=== PATIENT | male | born 1970 | race Caucasian/White ===

== ENCOUNTER 2017-11-27 12:10 | Observation (INO) | payer MEDICAID, MEDICARE ==
[2017-11-27] VITALS (7 sets, daily range): BP systolic 115–171; BP diastolic 60–84; PULSE 68–78; RESP 15–20; TEMP 97.3–97.6; O2SAT 94–96
[~2017-11-27] VITALS: Ht 195.6 cm; Wt 197.0 kg
[~2017-11-27 12:10] MED LIST: ALBU8I INH; ALLO300T2 PO; CHOL50006 PO; COLC1TAB7 PO; FURO1TAB93 PO; METO2.5T7 PO; MORP100T40 PO; MULT-65 PO; NEUR800T PO; OXYC5 PO; POTA-243 PO; SUMA25 PO; SYMB80AE INH
[2017-11-27] MEDS ORDERED: CHOL5000 PO (12:39)
[2017-11-27] MEDS ORDERED: SENO8.6T5 PO (12:39)
[2017-11-27] MEDS ORDERED: SYMB160A INH (12:39)
[2017-11-27] MEDS ORDERED: ALLO300T2 PO (12:39)
[2017-11-27] MEDS ORDERED: GABA600T PO (12:39)
[2017-11-27] MEDS ORDERED: COLA100C5 PO (12:39)
[2017-11-27] MEDS ORDERED: OXYC30TA PO (12:39)
[2017-11-27] MEDS ORDERED: PANT40TA3 PO (12:39)
[2017-11-27] MEDS ORDERED: MULTTAB67 PO (12:39)
[2017-11-27] MEDS ORDERED: VENTAER INH (12:39)
[2017-11-27] MEDS ORDERED: POTA1TAB4 PO (12:39)
[2017-11-27] MEDS ORDERED: MS C200T2 PO (12:39)
[2017-11-27] MEDS ORDERED: SODIUM CHLORIDE 0.9% FLUSH 10 ML FLUSH IV FLUSH PRN ×2 (12:45→15:00)
[2017-11-27] MEDS ORDERED: MORPHINE SULFATE 4 MG/ML INJ IV PUSH ONE (12:45)
[2017-11-27] MEDS ORDERED: FAMOTIDINE 20 MG/2 ML VIAL IV PUSH ONE (12:45)
[2017-11-27 12:56] LABS: AUTOMATED NEUTROPHIL # 7.2 TH/MM3 (1.8-7.7); BASOPHIL # 0.2 TH/MM3 (0-0.2); BASOPHIL % 2.4 % (0.0-2.0); EOSINOPHIL # 0.2 TH/MM3 (0-0.4); EOSINOPHIL % 2.3 % (0.0-4.0); HEMATOCRIT 44.4 % (39.0-51.0); HEMOGLOBIN 15.1 GM/DL (13.0-17.0); LYMPH % 12.1 % (9.0-44.0); LYMPHOCYTE # 1.1 TH/MM3 (1.0-4.8); MEAN CELL VOLUME 83.8 FL (80.0-100.0); MEAN CORPUSCULAR HEMOGLOBIN 28.6 PG (27.0-34.0); MEAN CORPUSCULAR HGB CONC 34.1 % (32.0-36.0); MEAN PLATELET VOLUME 9.7 FL (7.0-11.0); MONO % 8.3 % (0.0-8.0); MONOCYTE # 0.8 TH/MM3 (0-0.9); NEUT % 74.9 % (16.0-70.0); PLATELET COUNT 212 TH/MM3 (150-450); RED BLOOD COUNT 5.29 MIL/MM3 (4.50-5.90); RED CELL DISTRIBUTION WIDTH 13.9 % (11.6-17.2); WHITE BLOOD COUNT 9.5 TH/MM3 (4.0-11.0)
[2017-11-27 13:03] LABS: BILIRUBIN, URINE NEG (NEG); BLOOD, URINE NEG (NEG); GLUCOSE,URINE 1000 OR GREATER mg/dL (NEG); KETONE, URINE NEG (NEG); NITRITE,URINE NEG (NEG); URINE COLOR YELLOW (YELLW/STRAW); URINE LEUKOCYTE ESTERASE NEG (NEG)
[2017-11-27 13:10] LABS: RBC, URINE 0-3 /hpf (0-3); SQUAMOUS EPITHELIAL CELL URINE 0-5 /hpf (0-5)
[2017-11-27 13:27] LABS: ALBUMIN 3.2 GM/DL (3.4-5.0); ALKALINE PHOSPHATASE 125 U/L (45-117); ALT (GPT) 22 U/L (12-78); AST (GOT) 16 U/L (15-37); BICARBONATE 30.3 MEQ/L (21.0-32.0); BLOOD UREA NITROGEN 13 MG/DL (7-18); CALCIUM 8.8 MG/DL (8.5-10.1); CHLORIDE 79 MEQ/L (98-107); GLOMERULAR FILTRATION RATE 46 ML/MIN (>89); PROTHROMBIN TIME - PATIENT 10.4 SEC (9.8-11.6); TROPONIN I LESS THAN 0.02 NG/ML (0.02-0.05)
[2017-11-27 13:30] LABS: GLUCOSE,RANDOM 921 MG/DL (74-106); SODIUM (NA) 120 MEQ/L (136-145)
[2017-11-27] MEDS ORDERED: SODIUM CHLOR 0.9% 1000 ML INJ 1,000 ML IV ONE ×2 (13:45)
[2017-11-27] MEDS ORDERED: INSULIN HUMAN REGULAR 1,000 UNITS/10 ML VIAL IV PUSH ONE (13:45)
[2017-11-27] MEDS ORDERED: IOHEXOL 350 MG/ML 10 ML VIAL (for RAD DIAG) IVCONTRAST ONE (13:59)
--- NOTE | 2017-11-27 14:38 | RADRPT ---
EXAM DATE: 11/27/2017 1:59 PM EDT AGE/SEX: 47 years / Male INDICATIONS: Left abdominal pain. CLINICAL DATA: This is the patient's initial encounter. Patient reports that signs and symptoms have been present for 1 week and indicates a pain score of 5/10. MEDICAL/SURGICAL HISTORY: Gastroesophageal reflux disease. Renal calculi. Ulcers. Gastritis. Hypertension. Seizures. None. ORAL CONTRAST: No oral contrast ingested. RADIATION DOSE: 31.88 CTDI (mGy) ; Patient body habitus COMPARISON: No prior [facility] exams available for comparison. TECHNIQUE: Multiple contiguous axial images were obtained through the abdomen and pelvis following b olus infusion of 90 ml Omnipaque 350 (iohexol) nonionic water-soluble contrast as a single exam dos e. No oral contrast ingested. Using automated exposure control and adjustment of the mA and/or kV ac cording to patient size, the radiation dose was kept as low as reasonably achievable to obtain optima l diagnostic quality images. FINDINGS: Lower Lungs: The visualized lower lungs are clear. Liver: The liver has a homogeneous , but decreased density without space-occupying lesion. There is n o dilation of the biliary tree. Spleen: Homogeneous density without enlargement. Pancreas: Mild haziness around the head of the pancreas could represent a very early pancreatitis. N o focal mass lesion. Kidneys: Normal in size and shape. No evidence of mass or hydronephrosis. Adrenal Glands: Unremarkable. Aorta: The aorta and proximal iliac vessels are grossly unremarkable without aneurysmal dilation. Bowel/Mesentery: The bowel loops are grossly unremarkable. The cecum and sigmoid colon have a normal configuration. Abdominal Wall: Intact. Retroperitoneum: There are a few prominent lymph nodes along the iliac chains bilaterally. These kris sure upwards of 2.5 cm in diameter. These appear to be isolated to the iliac chain and may be reactiv e. Bladder: Contours are smooth. Reproductive Organs: No abnormal masses or calcifications seen. Inguinal: Small, 2.7 cm left inguinal hernia only contains fat. Bony Structures: Unremarkable. Post Contrast: No abnormal areas of enhancement seen. CONCLUSION: 1. There is some haziness in the fatty tissues adjacent to the pancreatic head. Findings could repre sent a very early, mild pancreatitis. 2. Mild, diffuse hepatic fatty infiltration. 3. Prominent lymph nodes along the iliac chains bilaterally. These appear to be isolated to this reg ion and may be reactive. 4. 2.7 cm left inguinal hernia only contains fat. Electronically signed by: Wes Pfeiffer MD 11/27/2017 2:37 PM EDT
[2017-11-27] MEDS ORDERED: POTASSIUM CHLORIDE 10 MEQ CONTROLLED RELEASE TAB PO ONE (14:45)
--- NOTE | 2017-11-27 14:52 | PD ---
HPI Chief Complaint: Chest Pain Time Seen by Provider: 12:24 Travel History International Travel<30 days: No Contact w/Intl Traveler<30days: No Traveled to known affect area: No History of Present Illness HPI Patient is a 47-year-old male who comes in complaining of abdominal pain and chest pain. He says that the pain in his belly started about 4 or 5 days ago and then moved up into his chest. He says the pain feels like a knot in the upper part of his stomach. He has had issues with the stomach before. He denies any cardiac problems. He has been on doxycycline for a urinary tract infection. Does report some diarrhea, but none today. He reports increased thirst and urination. He denies fever chills. Severity is mild to moderate. PFSH Past Medical History Anemia: Yes Asthma: Yes (BRONCHITIS) Anxiety: Yes Cancer: Yes (BASAL CELL ) Diabetes: Yes Patient Takes Glucophage: No Diminished Hearing: Yes Gastrointestinal Disorders: Yes (Hx gastritis) GERD: Yes Headaches: Yes Hypertension: Yes Kidney Stones: Yes Medical other: Yes (frequent UTI; Epidermolysis bullosa) Musculoskeletal: Yes (arthritis; osteomyelitis in back) Neurologic: Yes (Hx migraines) Psychiatric: No Respiratory: Yes (Bipap: sleep apneas) Integumentary: Yes (SKIN DISEASE-- EPIDERMALOSIS SIMPLEX) Migraines: Yes Seizures: Yes (PETITE MAL) Sleep Apnea: Yes Ulcer: Yes (HX OF STOMACH ULCER IN PAST) Influenza Vaccination: No Past Surgical History Genitourinary Surgery: Yes (Urethral dilatation multiple times) Oral Surgery: Yes (tonsillectomy) Tonsillectomy: Yes Other Surgery: Yes (HX OF SUPRA PUBIC CATH, CLEANED OUT SCAR TISSURE FROM URETHERAL TRACT) Family History Family Hypercholesterolemia: Yes Social History Alcohol Use: No Tobacco Use: No Substance Use: No Allergies-Medications (Allergen,Severity, Reaction): Coded Allergies: ceftriaxone (Unverified Allergy, Severe, 11/27/17) WBC GOES UP ciprofloxacin (Unverified Allergy, Severe, 11/27/17) penicillin G (Unverified Allergy, Severe, 11/27/17) UNKNOWN- TESTED POSITIVE ON ALLERGY TEST vancomycin (Unverified Allergy, Severe, 11/27/17) WBC GOES UP Reported Meds & Prescriptions Reported Meds & Active Scripts Active Reported Colace (Docusate Sodium) 100 Mg Capsule 200 Mg PO HS Senokot (Sennosides) 8.6 Mg Tab 8.6 Mg PO DAILY Allopurinol 300 Mg Tab 300 Mg PO DAILY Symbicort Inh (Budesonide/Formoterol Fumarate) 160-4.5 Mcg/Act Aero 1 Puff INH DAILY Ventolin Hfa 18 GM Inh (Albuterol Sulfate) 90 Mcg/Act Aer 2 Puff INH Q6H PRN Vitamin D3 (Cholecalciferol) 5,000 Unit Cap 5,000 Units PO DAILY Multiple Vitamin 1 Tab 1 Tab PO DAILY Ms Contin (Morphine Sulfate) 200 Mg Tab 100 Mg PO BID Oxycodone (Oxycodone HCl) 30 Mg Tab 30 Mg PO Q4HR PRN Gabapentin 600 Mg Tab 1,200 Mg PO BID K-Tab (Potassium Chloride) 20 Meq Tab 20 Meq PO BID Pantoprazole (Pantoprazole Sodium) 40 Mg Tab 40 Mg PO DAILY Review of Systems Except as stated in HPI: all other systems reviewed are Neg General / Constitutional: No: Fever, Chills HENT: No: Headaches, Lightheadedness Cardiovascular: Positive: Chest Pain or Discomfort Respiratory: No: Shortness of Breath Gastrointestinal: Positive: Diarrhea, Abdominal Pain Skin: No Rash, No Change in Pigmentation Endocrine: Positive: Polyuria, Polydipsia Physical Exam Narrative GENERAL: Awake and alert, no acute distress. SKIN: Focused skin assessment warm/dry. HEAD: Atraumatic. Normocephalic. EYES: Pupils equal and round. No scleral icterus. ENT: Mucous membranes pink and moist. NECK: Trachea midline. No JVD. CARDIOVASCULAR: Regular rate and rhythm. No murmur appreciated. RESPIRATORY: No accessory muscle use. Clear to auscultation. Breath sounds equal bilaterally. GASTROINTESTINAL: Abdomen soft, nondistended. Tender to palpation of the epigastric area, no rebound or guarding. MUSCULOSKELETAL: No obvious deformities. No clubbing. No cyanosis. No edema. NEUROLOGICAL: Awake and alert. No obvious cranial nerve deficits. Motor grossly within normal limits. Normal speech. PSYCHIATRIC: Appropriate mood and affect; insight and judgment normal. Data Data Last Documented VS Vital Signs Date Time Temp Pulse Resp B/P (MAP) Pulse Ox O2 Delivery O2 Flow Rate FiO2 11/27/17 14:00 72 20 149/84 (105) 95 Room Air 11/27/17 12:21 97.6 Orders Orders Complete Blood Count With Diff (11/27/17 12:42) Comprehensive Metabolic Panel (11/27/17 12:42) Lipase (11/27/17 12:42) Prothrombin Time / Inr (Pt) (11/27/17 12:42) Act Partial Throm Time (Ptt) (11/27/17 12:42) Urinalysis - C+S If Indicated (11/27/17 12:42) Ct Abd/Pel W Iv Contrast(Rout) (11/27/17 12:42) Iv Access Insert/Monitor (11/27/17 12:42) Ecg Monitoring (11/27/17 12:42) Oximetry (11/27/17 12:42) Morphine Inj (Morphine Inj) (11/27/17 12:45) Sodium Chloride 0.9% Flush (Ns Flush) (11/27/17 12:45) Famotidine Inj (Pepcid Inj) (11/27/17 12:45) Troponin I (11/27/17 12:42) Sodium Chlor 0.9% 1000 Ml Inj (Ns 1000 M (11/27/17 13:45) Sodium Chlor 0.9% 1000 Ml Inj (Ns 1000 M (11/27/17 13:45) Insulin Human Regular Inj (Novolin R Inj (11/27/17 13:45) Iohexol 350 Inj (Omnipaque 350 Inj) (11/27/17 13:59) Admit Order (Ed Use Only) (11/27/17 ) Potassium Chloride (Kcl) (11/27/17 14:45) Labs Laboratory Tests Test 11/27/17 12:48 11/27/17 13:00 White Blood Count 9.5 TH/MM3 Red Blood Count 5.29 MIL/MM3 Hemoglobin 15.1 GM/DL Hematocrit 44.4 % Mean Corpuscular Volume 83.8 FL Mean Corpuscular Hemoglobin 28.6 PG Mean Corpuscular Hemoglobin Concent 34.1 % Red Cell Distribution Width 13.9 % Platelet Count 212 TH/MM3 Mean Platelet Volume 9.7 FL Neutrophils (%) (Auto) 74.9 % Lymphocytes (%) (Auto) 12.1 % Monocytes (%) (Auto) 8.3 % Eosinophils (%) (Auto) 2.3 % Basophils (%) (Auto) 2.4 % Neutrophils # (Auto) 7.2 TH/MM3 Lymphocytes # (Auto) 1.1 TH/MM3 Monocytes # (Auto) 0.8 TH/MM3 Eosinophils # (Auto) 0.2 TH/MM3 Basophils # (Auto) 0.2 TH/MM3 CBC Comment DIFF FINAL Differential Comment Prothrombin Time 10.4 SEC Prothromb Time International Ratio 1.0 RATIO Activated Partial Thromboplast Time 26.1 SEC Blood Urea Nitrogen 13 MG/DL Creatinine 1.60 MG/DL Random Glucose 921 MG/DL Total Protein 8.0 GM/DL Albumin 3.2 GM/DL Calcium Level 8.8 MG/DL Alkaline Phosphatase 125 U/L Aspartate Amino Transf (AST/SGOT) 16 U/L Alanine Aminotransferase (ALT/SGPT) 22 U/L Total Bilirubin 1.0 MG/DL Sodium Level 120 MEQ/L Potassium Level 3.2 MEQ/L Chloride Level 79 MEQ/L Carbon Dioxide Level 30.3 MEQ/L Anion Gap 11 MEQ/L Estimat Glomerular Filtration Rate 46 ML/MIN Troponin I LESS THAN 0.02 NG/ML Lipase 453 U/L Urine Collection Type CLEAN CATCH Urine Color YELLOW Urine Turbidity CLEAR Urine pH 6.0 Urine Specific [place] LESS/EQUAL 1.005 Urine Protein NEG mg/dL Urine Glucose (UA) 1000 OR GREATER mg/dL Urine Ketones NEG mg/dL Urine Occult Blood NEG Urine Nitrite NEG Urine Bilirubin NEG Urine Urobilinogen 0.2 MG/DL Urine Leukocyte Esterase NEG Urine RBC 0-3 /hpf Urine Squamous Epithelial Cells 0-5 /hpf Microscopic Urinalysis Comment CULT NOT INDICATED Urine Collection Time 13:00 [facility] Medical Decision Making Medical Screen Exam Complete: Yes Emergency Medical Condition: Yes Medical Record Reviewed: Yes Interpretation(s) ECG shows normal sinus rhythm at a rate of 78, no ST elevation or depression, normal intervals Differential Diagnosis Gastritis versus GERD versus ACS Narrative Course Patient is a 39-year-old male comes in complaining of chest pain and abdominal pain. Exam shows epigastric tenderness. IV established, labs sent. Labs show slight elevation in lipase. Glucose is elevated to 921. Potassium is 3.2, this was replaced. Sodium is 120, but this is due to the elevated glucose level. Patient given IV fluids, insulin. Given pain medicine. Given aspirin. CT of the abdomen and pelvis performed shows slight inflammation around the pancreas. Last 24 hours Impressions Abdomen/Pelvis CT 11/27/17 1242 Signed Impressions: CONCLUSION: 1. There is some haziness in the fatty tissues adjacent to the pancreatic head . Findings could represent a very early, mild pancreatitis. 2. Mild, diffuse hepatic fatty infiltration. 3. Prominent lymph nodes along the iliac chains bilaterally. These appear to b e isolated to this region and may be reactive. 4. 2.7 cm left inguinal hernia only contains fat. Patient will be admitted for further management. Diagnosis Primary Impression: Hyperglycemia Additional Impressions: New onset type 2 diabetes mellitus Pancreatitis Qualified Codes: K85.90 - Acute pancreatitis without necrosis or infection, unspecified Chest pain Qualified Codes: R07.9 - Chest pain, unspecified Admitting Information Admitting Physician Requests: it Beena Dobson MD November 27, 2017 14:52
[2017-11-27] MEDS ORDERED: ACETAMINOPHEN 325 MG TAB PO PRN (15:00)
[2017-11-27] MEDS ORDERED: ONDANSETRON HCL 4 MG/2 ML VIAL IVP PRN (15:00)
[2017-11-27] MEDS ORDERED: GLUCAGON 1 MG/ML VIAL OTHER PRN (15:00)
[2017-11-27] MEDS ORDERED: MAGNESIUM HYDROXIDE SUSP 30 ML CUP PO PRN (15:00)
[2017-11-27] MEDS ORDERED: ASPIRIN 81 MG CHEW TAB CHEW ONE (15:00)
[2017-11-27] MEDS ORDERED: DEXTROSE 50% IN WATER 50 ML VIAL(D50) IV PUSH PRN (15:00)
[2017-11-27] MEDS ORDERED: NALOXONE HCL 0.4 MG/ML AMP IV PUSH PRN (15:00)
[2017-11-27] MEDS: SODIUM CHLOR 0.9% 1000 ML INJ 1,000 ML IV SCH (15:29)
[2017-11-27] MEDS ORDERED: INSULIN ASPART 1,000 UNITS/10 ML VIAL SQ ONE (16:00)
[2017-11-27] MEDS: INSULIN ASPART SUPPLEMENTAL SCALE SQ SCH ×2 (17:06→21:31)
--- NOTE | 2017-11-27 17:44 | HHI.HP ---
HPI Service [facility] Primary Care Physician Chad Cummins MD Admission Diagnosis pancreatitis, hyperglycemia, new onset diabetes Diagnoses: (1) Hyperosmolar non-ketotic state in patient with type 2 diabetes mellitus (2) Nonketotic hyperglycinemia, type II (3) New onset type 2 diabetes mellitus (4) Hypo-osmolar hyponatremia Chief Complaint: Abdominal pain Travel History International Travel<30 Days: No Contact w/Intl Traveler <30 Da: No Traveled to Known Affected Are: No History of Present Illness 47-year-old man with multiple medical condition presented to the ED initially for evaluation of abdominal pain 1 week as well as diarrhea without any emesis. He also complains initially of chest pain 2 days however associated with deep breathing. The ED, patient was found to have blood glucose of 921 for which patient was initially treated with insulin 15 units in ED. Patient denies any prior history of diabetes type 2. States, he was previously treated with prednisone. Patient has just completed a one-week course of doxycycline for UTI about 2 weeks ago. During my exam, patient reported improvement of abdominal pain however continued to have some chest pain along with shortness of breath. A CT abdomen with finding of early mild pancreatitis. He currently denies any tobacco, alcohol. Review of Systems Except as stated in HPI: all other systems reviewed are Neg Past Family Social History Past Medical History Anemia: Yes Asthma: Yes (BRONCHITIS) Anxiety: Yes Cancer: Yes (BASAL CELL ) Diabetes: Yes Gastrointestinal Disorders: Yes (Hx gastritis) GERD: Yes Headaches: Yes Hypertension: Yes Kidney Stones: Yes Medical other: Yes (frequent UTI; Epidermolysis bullosa) Musculoskeletal: Yes (arthritis; osteomyelitis in back) Neurologic: Yes (Hx migraines) Respiratory: Yes (Bipap: sleep apneas) Integumentary: Yes (SKIN DISEASE-- EPIDERMALOSIS SIMPLEX) Migraines: Yes Seizures: Yes (PETITE MAL) Sleep Apnea: Yes Ulcer: Yes (HX OF STOMACH ULCER IN PAST) Past Surgical History Genitourinary Surgery: Yes (Urethral dilatation multiple times) Oral Surgery: Yes (tonsillectomy) Tonsillectomy: Yes Other Surgery: Yes (HX OF SUPRA PUBIC CATH, CLEANED OUT SCAR TISSURE FROM URETHERAL TRACT) Reported Medications Colace (Docusate Sodium) 100 Mg Capsule 200 Mg PO HS Senokot (Sennosides) 8.6 Mg Tab 8.6 Mg PO DAILY Allopurinol 300 Mg Tab 300 Mg PO DAILY Symbicort Inh (Budesonide/Formoterol Fumarate) 160-4.5 Mcg/Act Aero 1 Puff INH DAILY Ventolin Hfa 18 GM Inh (Albuterol Sulfate) 90 Mcg/Act Aer 2 Puff INH Q6H PRN Vitamin D3 (Cholecalciferol) 5,000 Unit Cap 5,000 Units PO DAILY Multiple Vitamin 1 Tab 1 Tab PO DAILY Ms Contin (Morphine Sulfate) 200 Mg Tab 100 Mg PO BID Oxycodone (Oxycodone HCl) 30 Mg Tab 30 Mg PO Q4HR PRN Gabapentin 600 Mg Tab 1,200 Mg PO BID K-Tab (Potassium Chloride) 20 Meq Tab 20 Meq PO BID Pantoprazole (Pantoprazole Sodium) 40 Mg Tab 40 Mg PO DAILY Allergies: Coded Allergies: ceftriaxone (Unverified Allergy, Severe, 11/27/17) WBC GOES UP ciprofloxacin (Unverified Allergy, Severe, 11/27/17) penicillin G (Unverified Allergy, Severe, 11/27/17) UNKNOWN- TESTED POSITIVE ON ALLERGY TEST vancomycin (Unverified Allergy, Severe, 11/27/17) WBC GOES UP Family History Family Hypercholesterolemia Heart disease Diabetes type 2 Social History Alcohol Use: No Tobacco Use: No Substance Use: No Physical Exam Vital Signs Vital Signs Date Time Temp Pulse Resp B/P (MAP) Pulse Ox O2 Delivery O2 Flow Rate FiO2 11/27/17 16:37 68 18 140/60 (86) 95 Room Air 11/27/17 15:00 70 18 115/70 (85) 95 Room Air 11/27/17 14:00 72 20 149/84 (105) 95 Room Air 11/27/17 13:04 20 11/27/17 13:03 20 94 Room Air 11/27/17 13:02 78 18 171/69 (103) 94 Room Air 11/27/17 12:21 97.6 78 18 138/69 (92) 96 Physical Exam GENERAL: This is a well-nourished, well-developed obese patient, in no apparent distress. SKIN: No rashes, ecchymoses or lesions. Cool and dry. HEAD: Atraumatic. Normocephalic. No temporal or scalp tenderness. EYES: Pupils equal round and reactive. Extraocular motions intact. No scleral icterus. No injection or drainage. ENT: Nose without bleeding, purulent drainage or septal hematoma. Throat without erythema, tonsillar hypertrophy or exudate. Uvula midline. Airway patent. NECK: Trachea midline. No JVD or lymphadenopathy. Supple, nontender, no meningeal signs. CARDIOVASCULAR: Regular rate and rhythm without murmurs, gallops, or rubs. RESPIRATORY: Clear to auscultation. Breath sounds equal bilaterally. No wheezes , rales, or rhonchi. GASTROINTESTINAL: Abdomen soft, non-tender, nondistended. No hepato-splenomegaly , or palpable masses. No guarding. MUSCULOSKELETAL: Extremities without clubbing, cyanosis, or edema. No joint tenderness, effusion, or edema noted. No calf tenderness. Negative Homans sign bilaterally. NEUROLOGICAL: Awake and alert. Cranial nerves II through XII intact. Motor and sensory grossly within normal limits. Five out of 5 muscle strength in all muscle groups. Normal speech. Laboratory Laboratory Tests Test 11/27/17 12:48 11/27/17 13:00 White Blood Count 9.5 Red Blood Count 5.29 Hemoglobin 15.1 Hematocrit 44.4 Mean Corpuscular Volume 83.8 Mean Corpuscular Hemoglobin 28.6 Mean Corpuscular Hemoglobin Concent 34.1 Red Cell Distribution Width 13.9 Platelet Count 212 Mean Platelet Volume 9.7 Neutrophils (%) (Auto) 74.9 Lymphocytes (%) (Auto) 12.1 Monocytes (%) (Auto) 8.3 Eosinophils (%) (Auto) 2.3 Basophils (%) (Auto) 2.4 Neutrophils # (Auto) 7.2 Lymphocytes # (Auto) 1.1 Monocytes # (Auto) 0.8 Eosinophils # (Auto) 0.2 Basophils # (Auto) 0.2 CBC Comment DIFF FINAL Differential Comment Prothrombin Time 10.4 Prothromb Time International Ratio 1.0 Activated Partial Thromboplast Time 26.1 Blood Urea Nitrogen 13 Creatinine 1.60 Random Glucose 921 Total Protein 8.0 Albumin 3.2 Calcium Level 8.8 Alkaline Phosphatase 125 Aspartate Amino Transf (AST/SGOT) 16 Alanine Aminotransferase (ALT/SGPT) 22 Total Bilirubin 1.0 Sodium Level 120 Potassium Level 3.2 Chloride Level 79 Carbon Dioxide Level 30.3 Anion Gap 11 Estimat Glomerular Filtration Rate 46 Troponin I LESS THAN 0.02 Lipase 453 B-Hydroxybutyrate 0.45 Urine Collection Type CLEAN CATCH Urine Color YELLOW Urine Turbidity CLEAR Urine pH 6.0 Urine Specific [place] LESS/EQUAL 1.005 Urine Protein NEG Urine Glucose (UA) 1000 OR GREATER Urine Ketones NEG Urine Occult Blood NEG Urine Nitrite NEG Urine Bilirubin NEG Urine Urobilinogen 0.2 Urine Leukocyte Esterase NEG Urine RBC 0-3 Urine Squamous Epithelial Cells 0-5 Microscopic Urinalysis Comment CULT NOT INDICATED Urine Collection Time 13:00 Result Diagram: 11/27/17 1248 11/27/17 1248 Imaging Last Impressions Abdomen/Pelvis CT 11/27/17 1242 Signed Impressions: CONCLUSION: 1. There is some haziness in the fatty tissues adjacent to the pancreatic head . Findings could represent a very early, mild pancreatitis. 2. Mild, diffuse hepatic fatty infiltration. 3. Prominent lymph nodes along the iliac chains bilaterally. These appear to b e isolated to this region and may be reactive. 4. 2.7 cm left inguinal hernia only contains fat. Septic Shock Reassessment Septic shock perfusion: reassessment completed Caprini VTE Risk Assessment Caprini VTE Risk Assessment: No/Low Risk (score <= 1) Caprini Risk Assessment Model Point Value = 1 Point Value = 2 Point Value = 3 Point Value = 5 Age 41-60 Minor surgery BMI > 25 kg/m2 Swollen legs Varicose veins or History of unexplained or recurrent spontaneous Oral contraceptives or hormone replacement Sepsis (< 1 month) Serious lung disease, including pneumonia (< 1 month) Abnormal pulmonary function Acute myocardial infarction Congestive heart failure (< 1 month) History of inflammatory bowel disease Medical patient at bed rest Age 61-74 Arthroscopic surgery Major open surgery (> 45 min) Laparoscopic surgery (> 45 min) Malignancy Confined to bed (> 72 hours) Immobilizing plaster cast Central venous access Age >= 75 History of VTE Family history of VTE Factor V Leiden Prothrombin [id number] Lupus anticoagulant Anticardiolipin antibodies Elevated serum homocysteine Heparin-induced thrombocytopenia Other congenital or acquired thrombophilia Stroke (< 1 month) Elective arthroplasty Hip, pelvis, or leg fracture Acute spinal cord injury (< 1 month) Prophylaxis Regimen Total Risk Factor Score Risk Level Prophylaxis Regimen 0-1 Low Early ambulation 2 Moderate Order ONE of the following: *Sequential Compression Device (SCD) *Heparin 5000 units SQ BID 3-4 Higher Order ONE of the following medications: *Heparin 5000 units SQ TID *Enoxaparin/Lovenox 40 mg SQ daily (WT < 150 kg, CrCl > 30 mL/min) *Enoxaparin/Lovenox 30 mg SQ daily (WT < 150 kg, CrCl > 10-29 mL/min) *Enoxaparin/Lovenox 30 mg SQ BID (WT < 150 kg, CrCl > 30 mL/min) AND/OR *Sequential Compression Device (SCD) 5 or more Highest Order ONE of the following medications: *Heparin 5000 units SQ TID (Preferred with Epidurals) *Enoxaparin/Lovenox 40 mg SQ daily (WT < 150 kg, CrCl > 30 mL/min) *Enoxaparin/Lovenox 30 mg SQ daily (WT < 150 kg, CrCl > 10-29 mL/min) *Enoxaparin/Lovenox 30 mg SQ BID (WT < 150 kg, CrCl > 30 mL/min) AND *Sequential Compression Device (SCD) Assessment and Plan Problem List: (1) Hyperosmolar non-ketotic state in patient with type 2 diabetes mellitus ICD Code: E11.01 - Type 2 diabetes mellitus with hyperosmolarity with coma (2) Hypo-osmolar hyponatremia ICD Code: E87.1 - Hypo-osmolality and hyponatremia (3) Nonketotic hyperglycinemia, type II ICD Code: E72.9 - Disorder of amino-acid metabolism, unspecified (4) New onset type 2 diabetes mellitus ICD Code: E11.9 - Type 2 diabetes mellitus without complications Status: Acute Assessment and Plan 47-year-old man with Hyperosmolar nonketotic state in patient with newly diagnosed type 2 diabetes Nonketotic hyperglycemia, type II New onset type 2 diabetes mellitus Patient initially presented with blood glucose of 900+ however improved post treatment with insulin Hold on starting patient on insulin drip Continue high insulin scale with fingerstick blood glucose Start Levemir 15 units every 12 hours Check hemoglobin A1c, lipid profile Consult freight coordinator nurse Hypo-osmolar hyponatremia Secondary to above, correct hyperosmolar nonketotic state Start IV fluid hydration Other chronic medical conditions Resume outpatient medications DVT prophylaxis: Heparin Code Status Full code Discussed Condition With Patient, ED physician Maksim Banda MD November 27, 2017 17:44
[2017-11-27] MEDS ORDERED: ALBUTEROL SULFATE 90 MCG/ACT HFA 18 GM INHALER INH PRN (18:30)
[2017-11-27] MEDS ORDERED: ALBUTEROL SULFATE 90 MCG/ACT HFA 8 GM INHALER INH PRN (18:45)
[2017-11-27] MEDS: SODIUM CHLORIDE 0.9% FLUSH 10 ML FLUSH IV FLUSH SCH (20:09)
[2017-11-27] MEDS ORDERED: DOCUSATE SODIUM 100 MG CAP PO SCH (21:00)
[2017-11-27] MEDS: GABAPENTIN 300 MG CAP PO SCH (21:29)
[2017-11-27] MEDS: HEPARIN SODIUM - SQ 10,000 UNITS/ML VIAL SQ SCH (21:29)
[2017-11-27] MEDS: INSULIN DETEMIR 100 UNITS/ML VIAL SQ SCH (21:30)
[2017-11-27] MEDS: MORPHINE SULFATE 100 MG CONTROLLED RELEASE TAB PO SCH (22:22)
[2017-11-28] VITALS: BP 135/76; PULSE 70; RESP 15; TEMP 98; O2SAT 95
[2017-11-28] MEDS: SODIUM CHLOR 0.9% 1000 ML INJ 1,000 ML IV SCH ×2 (00:55→09:30)
[2017-11-28 06:09] LABS: BASOPHIL % 0.4 % (0.0-2.0); EOSINOPHIL # 0.5 TH/MM3 (0-0.4); EOSINOPHIL % 4.1 % (0.0-4.0); HEMATOCRIT 42.2 % (39.0-51.0); HEMOGLOBIN 14.8 GM/DL (13.0-17.0); LYMPH % 17.8 % (9.0-44.0); MEAN CELL VOLUME 82.1 FL (80.0-100.0); MEAN CORPUSCULAR HEMOGLOBIN 28.7 PG (27.0-34.0); MEAN PLATELET VOLUME 9.5 FL (7.0-11.0); MONOCYTE # 0.6 TH/MM3 (0-0.9); NEUT % 72.7 % (16.0-70.0); PLATELET COUNT 210 TH/MM3 (150-450); RED BLOOD COUNT 5.14 MIL/MM3 (4.50-5.90); RED CELL DISTRIBUTION WIDTH 13.9 % (11.6-17.2); WHITE BLOOD COUNT 11.1 TH/MM3 (4.0-11.0)
[2017-11-28 06:32] LABS: ALBUMIN 3.1 GM/DL (3.4-5.0); ALKALINE PHOSPHATASE 108 U/L (45-117); ALT (GPT) 22 U/L (12-78); AST (GOT) 17 U/L (15-37); BICARBONATE 34.6 MEQ/L (21.0-32.0); BLOOD UREA NITROGEN 10 MG/DL (7-18); CALCIUM 8.8 MG/DL (8.5-10.1); CHLORIDE 90 MEQ/L (98-107); GLOMERULAR FILTRATION RATE 71 ML/MIN (>89); GLUCOSE,RANDOM 202 MG/DL (74-106); SODIUM (NA) 132 MEQ/L (136-145); TOTAL PROTEIN 7.7 GM/DL (6.4-8.2)
[2017-11-28] MEDS ORDERED: POTASSIUM CHLORIDE 10 MEQ CONTROLLED RELEASE TAB PO ONE (07:15)
[2017-11-28 07:42] VITALS: BP 159/85; PULSE 79; RESP 20; TEMP 98.3; O2SAT 93
[2017-11-28] MEDS: GABAPENTIN 300 MG CAP PO SCH (08:16)
[2017-11-28] MEDS: HEPARIN SODIUM - SQ 10,000 UNITS/ML VIAL SQ SCH (08:16)
[2017-11-28] MEDS: INSULIN DETEMIR 100 UNITS/ML VIAL SQ SCH (08:17)
[2017-11-28] MEDS: INSULIN ASPART SUPPLEMENTAL SCALE SQ SCH (08:18)
[2017-11-28] MEDS: SODIUM CHLORIDE 0.9% FLUSH 10 ML FLUSH IV FLUSH SCH (08:23)
[2017-11-28] MEDS: MORPHINE SULFATE 100 MG CONTROLLED RELEASE TAB PO SCH (08:46)
[2017-11-28] MEDS ORDERED: LISINOPRIL 10 MG TAB PO SCH (09:00)
[2017-11-28] MEDS ORDERED: BUDESONIDE-FORMOTEROL 160/4.5 MCG INHALER INH SCH (09:00)
[2017-11-28] MEDS ORDERED: ALLOPURINOL 300 MG TAB PO SCH (09:00)
[2017-11-28] MEDS ORDERED: PANTOPRAZOLE SOD 40 MG DELAYED RELEASE TAB PO SCH (09:00)
--- NOTE | 2017-11-28 09:34 | HHI.PR ---
Subjective Remarks Follow-up new onset diabetes type 2 November 28, 2017-patient seen and examined, blood glucose currently down to 202 from 921 on admission. Still complaining of chest pain mostly muscular skeletal. Denies any more abdominal pain tolerated p.o. without any completion of nausea and vomiting. Objective Vitals Vital Signs Date Time Temp Pulse Resp B/P (MAP) Pulse Ox O2 Delivery O2 Flow Rate FiO2 11/28/17 07:42 98.3 79 20 159/85 (109) 93 11/28/17 00:00 98.0 70 15 135/76 (95) 95 11/27/17 20:00 97.3 71 15 120/61 (80) 94 11/27/17 18:21 11/27/17 16:37 68 18 140/60 (86) 95 Room Air 11/27/17 15:00 70 18 115/70 (85) 95 Room Air 11/27/17 14:00 72 20 149/84 (105) 95 Room Air 11/27/17 13:04 20 11/27/17 13:03 20 94 Room Air 11/27/17 13:02 78 18 171/69 (103) 94 Room Air 11/27/17 12:21 97.6 78 18 138/69 (92) 96 I/O 11/27/17 11/27/17 11/27/17 11/28/17 11/28/17 11/28/17 07:00 15:00 23:00 07:00 15:00 23:00 Intake Total 1000 ml 1500 ml Output Total 650 ml 900 ml Balance 350 ml 600 ml Intake Oral 500 ml IV Total 1000 ml 1000 ml Output Urine Total 650 ml 900 ml # Voids 1 2 Result Diagram: 11/28/17 0457 11/28/17 0457 Imaging Last Impressions Abdomen/Pelvis CT 11/27/17 1242 Signed Impressions: CONCLUSION: 1. There is some haziness in the fatty tissues adjacent to the pancreatic head . Findings could represent a very early, mild pancreatitis. 2. Mild, diffuse hepatic fatty infiltration. 3. Prominent lymph nodes along the iliac chains bilaterally. These appear to b e isolated to this region and may be reactive. 4. 2.7 cm left inguinal hernia only contains fat. Objective Remarks GENERAL: NAD SKIN: Warm and dry. HEAD: Normocephalic. EYES: No scleral icterus. No injection or drainage. NECK: Supple, trachea midline. No JVD or lymphadenopathy. CARDIOVASCULAR: Regular rate and rhythm without murmurs, gallops, or rubs. RESPIRATORY: Breath sounds equal bilaterally. No accessory muscle use. GASTROINTESTINAL: Abdomen soft, non-tender, nondistended. MUSCULOSKELETAL: No cyanosis, or edema. BACK: Nontender without obvious deformity. No CVA tenderness. A/P Problem List: (1) Hyperosmolar non-ketotic state in patient with type 2 diabetes mellitus ICD Code: E11.01 - Type 2 diabetes mellitus with hyperosmolarity with coma Status: Resolved (2) Hypo-osmolar hyponatremia ICD Code: E87.1 - Hypo-osmolality and hyponatremia Status: Resolved (3) Nonketotic hyperglycinemia, type II ICD Code: E72.9 - Disorder of amino-acid metabolism, unspecified (4) New onset type 2 diabetes mellitus ICD Code: E11.9 - Type 2 diabetes mellitus without complications Status: Acute Assessment and Plan 47-year-old man with Hyperosmolar nonketotic state in patient with newly diagnosed type 2 diabetes Nonketotic hyperglycemia, type II New onset type 2 diabetes mellitus Blood glucose now down to 202 Continue high insulin scale with fingerstick blood glucose Currently on Levemir 15 units every 12 hours, will discharge home on Levemir 30 units every 12 hours and aspart 5 units 3 times daily before meals along with sliding scale Hemoglobin A1c pending, lipid profile pending Consult senior applications engineer nurse Hypo-osmolar hyponatremia-improving Secondary to above, correct hyperosmolar nonketotic state Improving with IV fluid hydration Hypokalemia Give potassium 60 mEq 1 now Chest pain Likely costochondritis Treat with ibuprofen Other chronic medical conditions Continue outpatient medications Hypertension Continue with lisinopril 10 mg daily DVT prophylaxis: Heparin Discharge Planning Discharge patient to home Condition on discharge: Improved Regular Diet as tolerated Ad Cassandra activity Rx written: See EMR Follow-up with primary care physician in 1 week Maksim Banda MD November 28, 2017 09:34
[2017-11-28] MEDS ORDERED: LEVEMIR SQ (09:44)
[2017-11-28] MEDS ORDERED: LANCETS1 MI1 (09:44)
[2017-11-28] MEDS ORDERED: NOVOLOGP2 SQ (09:44)
[2017-11-28] MEDS ORDERED: INSU1MIS15 (09:44)
[2017-11-28] MEDS ORDERED: GLUCKIT15 (09:44)
[2017-11-28] MEDS ORDERED: GLUCTES12 (09:44)
[2017-11-28] MEDS ORDERED: BIOM30MI (09:44)
--- NOTE | 2017-11-28 09:45 | HHI.DCPOC ---
Discharge Care Plan Diagnosis: (1) Diabetes mellitus, new onset (2) Pancreatitis Goals to Promote Your Health * To prevent worsening of your condition and complications * To maintain your health at the optimal level Directions to Meet Your Goals Take your medications as prescribed Follow your dietary instruction Follow activity as directed Keep your appointments as scheduled Take your immunizations and boosters as scheduled If your symptoms worsen call your PCP, if no PCP go to Urgent Care Center or Emergency Room Smoking is Dangerous to Your Health. Avoid second hand smoke Call the 24-hour hour crisis hotline for domestic abuse at [facility] November 28, 2017 09:45
[2017-11-28] MEDS ORDERED: IBUP-232 PO (11:20)
[2017-11-28 11:25] VITALS: BP 129/65; PULSE 87; RESP 20; TEMP 97.9; O2SAT 93
[2017-11-28 11:57] LABS: CHOLESTEROL 109 MG/DL (120-200)
[2017-11-28 11:58] LABS: HDL CHOLESTEROL 35.1 MG/DL (40.0-60.0); LDL CHOLESTEROL 42 MG/DL (0-99); TRIGLYCERIDES 160 MG/DL (42-150)
--- NOTE | 2017-11-28 12:25 | RADRPT ---
EXAM DATE: 11/28/2017 12:19 PM EDT AGE/SEX: 47 years / Male INDICATIONS: Chest pain. CLINICAL DATA: This is the patient's initial encounter. Patient reports that signs and symptoms have been present for 2 days and indicates a pain score of 4/10. MEDICAL/SURGICAL HISTORY: Hypertension. Asthma. Diabetes mellitus type II. anemia None. COMPARISON: No prior [place] exams available for comparison. FINDINGS: A single AP view of the chest demonstrates the lungs to be symmetrically aerated without evidence of mass, infiltrate or effusion. The cardiomediastinal contours are unremarkable. Osseous structures a re intact. CONCLUSION: Negative examination. Electronically signed by: Stefano Mercado MD 11/28/2017 12:24 PM EDT
[2017-11-28 15:08] LABS: HEMOGLOBIN A1C 13.2 % (4.3-6.0)
--- NOTE | 2017-11-28 18:24 | EKG ---
Date Performed: 11/27/2017 Time Performed: 12:15:58 PTAGE: 47 years EKG: Sinus rhythm POSSIBLE INFERIOR MYOCARDIAL INFARCTION Since previous tracing, no significant change noted [facility] [place] ECG PREVIOUS TRACING : 09/04/2012 14.18 DOCTOR: Theodora Bond Interpretating Date/Time 11/28/2017 18:24:13
== END 2017-11-28 13:39 | disposition home or self-care (01) ==
LOC: PHED 12:10 → PHEDA 14:42 → INTOOBSV 14:42 → PH3A 18:12
PROVIDERS: ADMIT Hospitalist; ATTEND Hospitalist
DX: K85.90 Acute pancreatitis without necrosis or infection, unspecified (principal); R19.7 Diarrhea, unspecified; D64.9 Anemia, unspecified; F41.9 Anxiety disorder, unspecified; K29.70 Gastritis, unspecified, without bleeding; K21.9 Gastro-esophageal reflux disease without esophagitis; I10 Essential (primary) hypertension; Z87.440 Personal history of urinary (tract) infections; Q81.9 Epidermolysis bullosa, unspecified; M86.9 Osteomyelitis, unspecified; G43.909 Migraine, unspecified, not intractable, without status migrainosus; L98.9 Disorder of the skin and subcutaneous tissue, unspecified; R56.9 Unspecified convulsions; G47.30 Sleep apnea, unspecified; Z79.899 Other long term (current) drug therapy; K40.90 Unilateral inguinal hernia, without obstruction or gangrene, not specified as recurrent; E11.00 Type 2 diabetes mellitus with hyperosmolarity without nonketotic hyperglycemic-hyperosmolar coma (NKHHC); R07.9 Chest pain, unspecified
CPT/HCPCS: 71045; 74177; 80053; 80061; 81001; 82010; 82948; 83036; 83690; 84484; 85025; 85610; 85730; 93005; 96361; 96372; 96374; 96375; 99285; G0378; J1644; J1815; J2270; J7030; Q9967